=== PATIENT | male | born 1970 | race Caucasian/White ===

== ENCOUNTER 2017-03-08 18:55 | Emergency (ER) | payer OTHER ==
[2017-03-08 19:01] VITALS: BP 141/120; PULSE 128; TEMP 99.3; BMI 26.7
--- NOTE | 2017-03-08 19:41 | PDOC ---
History of Present Illness - General History Source: Patient Exam Limitations: No Limitations - History of Present Illness Initial Comments: 03/08/17 19:53 The patient is a 46 year old male with a significant past medical history of HTN and diabetes who presents to the ED s/p fall earlier today. The patient reports he was walking up a hill in his parking lot when he slipped and fell onto his right side around 3 pm earlier today. The patient states he called EMS and was sent to [facility] where he claims he did not receive proper care. Patient comes into the ED with complaints of right sided buttock pain and facial injury. He states his buttock pain is constant and sharp. Denies loss of consciousness or headache. Denies fever or chills. Denies chest pain or shortness of breath. Denies any other symptoms. Surgical hx: Multiple eye surgeries, 5 surgeries in the right eye and 1 surgery in the left eye, over the past 3 years. <Garima Orozco - Last Filed: 03/09/17 00:01> <Lavonne Garcia - Last Filed: 03/09/17 02:18> - General Chief Complaint: Injury Stated Complaint: FALL INJURY Past History <Garima Orozco - Last Filed: 03/09/17 00:01> - Past Medical History COPD: No Diabetes: Yes HTN: Yes Other medical history: POOR VISION - Suicide/Smoking/Psychosocial Hx Smoking History: Current every day smoker Number of Cigarettes Smoked Daily: 2 Information on smoking cessation initiated: Yes 'Breaking Loose' booklet given: 03/08/17 Hx Alcohol Use: Yes (SOCIAL) Drug/Substance Use Hx: No Substance Use Type: None <Lavonne Garcia - Last Filed: 03/09/17 02:18> - Past Medical History Allergies/Adverse Reactions: Allergies Allergy/AdvReac Type Severity Reaction Status Date / Time No Known Allergies Allergy Verified 03/08/17 19:01 Home Medications: Ambulatory Orders Metformin HCl [Glucophage] 1,000 mg PO BID 03/08/17 Review of Systems - Review of Systems Able to Perform ROS?: Yes Comments:: 03/08/17 19:54 CONSTITUTIONAL: No reported: Fever, Chills, Diaphoresis, Generalized Weakness, Malaise, Loss of Appetite HEENT: No reported: Rhinorrhea, Nasal Congestion, Throat Pain, Throat Swelling, Difficulty Swallowing, Mouth Swelling, Ear Pain, Eye Pain, Visual Changes CARDIOVASCULAR: No reported: Chest Pain, Syncope, Palpitations, Irregular Heart Rate, Lightheadedness, Peripheral Edema RESPIRATORY: No reported: Cough, Shortness of Breath, SOB with Exertion, Orthopnea, Wheezing , Stridor, Hemoptysis GASTROINTESTINAL: No reported: Abdominal pain, Abdominal Distension, Nausea, Vomiting, Diarrhea, Constipation, Melena, Hematochezia GENITOURINARY: No reported: Dysuria, Frequency, Urgency, Hesitancy, Flank Pain, Genital Pain MUSCULOSKELETAL: + buttock pain No reported: Joint Swelling, Back pain, Neck Pain SKIN: + facial injury No reported: Rash, Itching, Pallor HEMEATOLOGIC/IMMUNOLOGIC: No reported: Easy Bleeding, Easy Bruising, Lymphadenopathy, Frequent infections ENDOCRINE: No reported: Unexplained Weight Gain, Unexplained Weight Loss, Heat Intolerance , Cold Intolerance NEUROLOGIC: No reported: Headache, Focal Weakness, Paresthesias, Vertigo, Lightheadedness, Unsteady Gait, Seizure, Mental Status Changes, Incontinence PSYCHIATRIC: No reported: Anxiety, Depression All Other Systems: Reviewed and Negative <Garima Orozco - Last Filed: 03/09/17 00:01> *Physical Exam - Vital Signs Last Vital Signs Temp Pulse Resp BP Pulse Ox 99.3 F 128 H 20 141/120 96 03/08/17 18:56 03/08/17 18:56 03/08/17 18:56 03/08/17 18:56 03/08/17 18:56 - Physical Exam Comments: 03/08/17 19:54 GENERAL: The patient is awake, alert, and fully oriented, Nontoxic - in no acute distress. HEAD: Normocephalic, atraumatic. EYES: + right cornea transplants, reproducible occlusion. sclera anicteric, conjunctiva clear. ENT: Normal voice, Moist mucous membranes. NECK: Normal range of motion, supple LUNGS: Breath sounds equal, clear to auscultation bilaterally. No wheezes, no rhonchi, no rales. HEART: Regular rate and rhythm, without murmur, rub or gallop. ABDOMEN: Soft, nontender, normoactive bowel sounds. No guarding, no rebound.No CVA tenderness EXTREMITIES: Normal range of motion, no edema. No clubbing or cyanosis. No cords, erythema, or tenderness. NEUROLOGICAL: No facial assymetry, Normal speech, PSYCH: Normal mood, normal affect. SKIN: + 2 abrasions to the left forehead, abrasion to the left zygomatic area, 2 abrasions on the nose, abrasion in the maxillary lip. <Garima Orozco - Last Filed: 03/09/17 00:01> - Vital Signs Last Vital Signs Temp Pulse Resp BP Pulse Ox 99.3 F 128 H 20 141/120 96 03/08/17 18:56 03/08/17 18:56 03/08/17 18:56 03/08/17 18:56 03/08/17 18:56 <Lavonne Garcia - Last Filed: 03/09/17 02:18> ED Treatment Course - RADIOLOGY Radiograph Interpretation: 03/09/17 00:01 EXAM: CT pelvis without contrast Findings: *Comminuted minimally displaced fracture of right acetabulum from anterior to posterior. Adjacent edema/hemorrhage extending into the right side of the pelvis. Mild degenerative changes noted. Reported by: Imaging medication nurse - Medications Given in the ED: ED Medications Discontinued Medications Generic Name Dose Route Start Last Admin Trade Name Freq PRN Reason Stop Dose Admin Ketorolac Tromethamine 60 mg 03/08/17 19:46 03/08/17 19:51 Toradol Injection - IM 03/08/17 19:47 60 mg ONCE ONE Administration <Garima Orozco - Last Filed: 03/09/17 00:01> Medical Decision Making - Medical Decision Making 03/09/17 02:17 Case discussed with orthopedics and the patient will be seen later today in the office of Drs. Ricci /Lj -Patient will be nonweight bearing using crutches -Patient given a Disc copy of the CAT scan <Lavonne Garcia - Last Filed: 03/09/17 02:18> *DC/Admit/Observation/Transfer - Attestations Scribe Attestion: 03/08/17 19:54 Documentation prepared by Garima Orozco, acting as medical office receptionist assistant for Lavonne Garcia MD <Garima Orozco - Last Filed: 03/09/17 00:01> <Lavonne Garcia - Last Filed: 03/09/17 02:18> Diagnosis at time of Disposition: Acetabular fracture Qualifiers: Encounter type: initial encounter Sublocation of acetabulum: unspecified portion of acetabulum Fracture type: closed Fracture alignment: displaced Laterality: right Qualified Code(s): S32.401A - Unspecified fracture of right acetabulum, initial encounter for closed fracture - Discharge Dispostion Disposition: HOME Condition at time of disposition: Stable - Referrals Referrals: Judi Palafox MD [Primary Care Provider] - Curtis Ricci MD [Staff Physician] - - Patient Instructions Printed Discharge Instructions: DI for Pelvic Fracture Additional Instructions: you have a comminuted minimally displaced FRACTURE of the right acetabulum from anterior to posterior Please see the orthopedist this morning between 8 o'clock and noon (the earlier the better) at [address] [facility], [address] across from the hospital Use your crutches Take motrin or tylenol for pain
[2017-03-08] MEDS ORDERED: BACITRACIN 15 GM TUBE TOPICAL OINTMENT TP ONE (19:44)
[2017-03-08] MEDS ORDERED: KETOROLAC TROMETHAMINE 60 MG/2 ML VIAL IM ONE (19:46)
[2017-03-08] MEDS ORDERED: KETOROLAC TROMETHAMINE 60 MG/2 ML VIAL ONE (19:47)
[2017-03-09] MEDS ORDERED: BACITRACIN 0.9 GM PACKET ONE (00:18)
== END 2017-03-09 01:21 | disposition home or self-care (01) ==
LOC: JER 18:55
PROC: 3E0233Z Introduction of Anti-inflammatory into Muscle, Percutaneous Approach (ICD-10-PCS; principal; 2017-03-08)
DX: S32.491A Other specified fracture of right acetabulum, initial encounter for closed fracture (principal); W17.81XA Fall down embankment (hill), initial encounter; Y93.89 Activity, other specified; Y92.481 Parking lot as the place of occurrence of the external cause; Y99.8 Other external cause status; I10 Essential (primary) hypertension; E11.9 Type 2 diabetes mellitus without complications; Z79.84 Long term (current) use of oral hypoglycemic drugs; F17.210 Nicotine dependence, cigarettes, uncomplicated
CPT/HCPCS: 72100-TC; 72170-TC; 72192-TC; 72220-TC; 96372; 99282-25

== ENCOUNTER 2018-10-24 21:01 | Emergency (ER) | payer MEDICARE, OTHER ==
[2018-10-24 21:22] VITALS: BMI 26.0
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
--- NOTE | 2018-10-24 23:14 | PDOC ---
Documentation entered by Phyllis Jasso SCRIBE, acting as scribe for Lavonne Garcia MD. Lavonne Garcia MD: This documentation has been prepared by the Romero barros Sammi, SCRIBE, under my direction and personally reviewed by me in its entirety. I confirm that the documentation accurately reflects all work, treatment, procedures, and medical decision making performed by me. Attending Attestation - Resident Resident Name: Yue Joaquin - ED Attending Attestation I have performed the following: I have examined & evaluated the patient, The case was reviewed & discussed with the resident, I agree w/resident's findings & plan, Exceptions are as noted - HPI HPI: 10/24/18 23:40 The patient is a 48 year old male, with a significant PMH of HTN, HLD, NIIDM, who presents to the emergency department for evaluation of progressively worsening right eye loss of vision, pain and edema. The patient states he woke up this morning and his eye was red and painful. He then noticed his vision began to fade. He notes a bilateral cornea transplant in 2016, with continuing problems with the right eye. The patient states he chronically takes eye drops and has never had any complications with it. - Physicial Exam PE: 10/25/18 00:10 48 yo male p/w grossly swollen right eye w purulent drainage head ncat eyes right eye has severe chemosis, swollen eyelid w purulent drainage,fixed pupil neck supple lungs cta b/l cvs [id number] abd nontender skin warm and dry no cva tenderness neuro axox3,ambulatory psych anxious - Medical Decision Making 10/25/18 00:14 We have not been able contact this pt's sr vice president and we have no ophthalmology coverage and thid pt was transferred to [facility] the case was accepted by ophthalmology
[2018-10-25 00:04] VITALS: BP 141/99; PULSE 79; TEMP 98.7
== END 2018-10-25 00:55 | disposition short-term general hospital (02) ==
LOC: JER 21:01
DX: H54.7 Unspecified visual loss (principal); Z94.7 Corneal transplant status; I10 Essential (primary) hypertension; E11.9 Type 2 diabetes mellitus without complications; E78.5 Hyperlipidemia, unspecified; Z72.0 Tobacco use
CPT/HCPCS: 99283-25